=== PATIENT | male | born 1995 | race Caucasian/White ===

== ENCOUNTER 2020-06-17 03:45 | Emergency (ER) | payer OTHER ==
[~2020-06-17] VITALS: Ht 172.7 cm; Wt 88.9 kg
[2020-06-17] MEDS ORDERED: ORPH-16 PO (04:08)
--- NOTE | 2020-06-17 04:08 | PHYS DOC ---
Past History Past Medical History: Anxiety, Asthma, Depression Past Surgical History: No Surgical History Smoking: Non-smoker Alcohol Use: Occasionally Drug Use: None General Adult EDM: Chief Complaint: BACK PAIN - NO INJURY HPI: HPI: 24-year-old male with past medical history of asthma presents report of dis comfort between his shoulder blades that becomes worse with range of motion about his shoulder. Reports has been ongoing for the past week. Patient reports has been taking ibuprofen 600 mg daily without significant relief. Denies trauma. Denies fever or chills. Denies rash. Denies cough. Denies known exposure to COVID-19. Review of Systems: Review of Systems: Constitutional: Denies fever or chills Eyes: Denies redness or eye pain HENT: Denies nasal congestion or sore throat Respiratory: Denies cough or shortness of breath Cardiovascular: Denies chest pain or palpitations GI: Denies abdominal pain, nausea, or vomiting : Denies dysuria or hematuria Musculoskeletal: Reports thoracic back pain which is worse with range of motion about shoulders Integument: Denies rash or skin lesions Neurologic: Denies headache, focal weakness or sensory changes Complete systems were reviewed and found to be within normal limits, except as documented in this note. Allergies: Allergies: Allergies Coded Allergies Type Severity Reaction Last Updated Verified No Known Allergies Allergy Unknown 06/17/20 Yes Physical Exam: PE: Constitutional: Well developed, well nourished, no acute distress, non-toxic appearance HENT: Normocephalic, atraumatic Eyes: Conjunctiva normal, no discharge Neck: Normal range of motion, no midline tenderness, supple Lungs & Thorax: No respiratory distress, equal chest rise and fall Skin: Warm, dry, no erythema, no rash Back: No midline tenderness, no CVA tenderness, right paraspinal tenderness which is worse with ROM about shoulder Extremities: No tenderness, ROM intact, no edema, radial pulse +2, patient with very brightly colored red long artificial nails. Neurologic: Alert and oriented X 3, normal motor function, normal sensory function, no focal deficits noted Psychologic: Affect normal, judgment normal EKG: EKG: [] Radiology/Procedures: Radiology/Procedures: [] Course & Med Decision Making: Course & Med Decision Making Patient presents with HPI and physical exam consistent for thoracic back pain. Worse with range of motion about shoulder. Appears more musculoskeletal in nature. No midline tenderness noted. No history of known trauma. Symptomatic treatment provided with IM Norflex and ice pack. Patient stable for discharge with outpatient follow-up with PCP/pain management. Pain management referral provided. Discussed findings and plan with patient, who acknowledges understanding and agreement. Yvon Disclaimer: Yvon Disclaimer: This electronic medical record was generated, in whole or in part, using a voice recognition dictation system. Departure Departure: Impression: Primary Impression: Acute thoracic back pain Qualified Codes: M54.6 - Pain in thoracic spine Disposition: DC HOME SELF CARE/HOMELESS Condition: STABLE Referrals: PCP,UNKNOWN (PCP) Patient Instructions: Back Pain, Adult, [id number] Additional Instructions: ICE area of discomfort 20 min on then leave off next 20 min. Repeat several times daily as needed for pain. Use over the counter Tylenol and/or Ibuprofen for pain or discomfort. Follow up with pain management and/or PCP. Pain management referral: Dr. Jamir Cavanaugh Address: [address] [place] [address] Scripts Orphenadrine Citrate (ORPHENADRINE CITRATE) 100 Mg Tablet.er 1 TAB PO BID PRN for MUSCLE PAIN, #14 TAB 0 Refills Prov: ASHLY SANTOS DO 06/17/20 ASHLY SANTOS DO Jun 17, 2020 04:08
[2020-06-17] MEDS: ORPHENADRINE CITRATE 60 MG/2 ML VIAL. IM ONE (04:16)
[2020-06-17 04:30] VITALS: BP 138/94
== END 2020-06-17 04:30 | disposition home or self-care (01) ==
LOC: ER 03:45
DX: M54.6 Pain in thoracic spine (principal); J45.909 Unspecified asthma, uncomplicated
CPT/HCPCS: 96372; 99283; J2360

== ENCOUNTER 2020-09-26 01:15 | Emergency (ER) | payer OTHER ==
[~2020-09-26] VITALS: Ht 172.7 cm; Wt 88.9 kg
[~2020-09-26 01:15] MED LIST: ORPH-16 PO
--- NOTE | 2020-09-26 01:29 | PHYS DOC ---
Past History Past Medical History: Anxiety, Asthma, Depression Past Surgical History: No Surgical History Smoking: Non-smoker Alcohol Use: Occasionally Drug Use: None General Adult EDM: Chief Complaint: SORE THROAT HPI: HPI: ".. I ve had a sore throat the last couple days.. I have now been check for COVID fhree times.. and they have all be negative.. I got checked because I had a non-[productive cough..." Patient is a 25 year old male dependent who presents with above hx and complaints of sore throat. Patient states sore throat came up in the last 2 days. 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 Patient notes there daily for in person for school at grade classes. Patient denies any specific exposures to Covid. No recent travel outside the [place] a [employer] area. Patient denies any history of immunosuppression. No history of other members of his family being ill. His partner male partner has not had any recent overseas assignments. Pt. follows at [facility]. Review of Systems: Review of Systems: Constitutional: Denies fever or chills Eyes: Denies change in visual acuity HENT: Complains of sore throat Respiratory: History nonproductive cough. Cardiovascular: Denies chest pain or edema GI: Denies abdominal pain, nausea, vomiting, bloody stools or diarrhea : Denies dysuria Musculoskeletal: Denies back pain or joint pain Integument: Denies rash Neurologic: Denies headache, focal weakness or sensory changes Endocrine: Denies polyuria or polydipsia Lymphatic: Denies swollen glands Psychiatric: Denies depression or anxiety Family History: Family History: Noncontributory Current Medications: Current Meds: See nursing for home meds Allergies: Allergies: Allergies Coded Allergies Type Severity Reaction Last Updated Verified No Known Allergies Allergy Unknown 06/17/20 Yes Physical Exam: PE: Constitutional: Well developed, well nourished, no acute distress, non-toxic appearance. [] HENT: Normocephalic, atraumatic, bilateral external ears normal, oropharynx moist, no oral exudates, mild injection of posterior pharynx nose normal. Multiple ears studs bilaterally Eyes: PERRLA, EOMI, conjunctiva normal, no discharge. [] Neck: Normal range of motion, no tenderness, supple, no stridor. No adenopathy. Cardiovascular:Heart rate regular rhythm, no murmur [] Lungs & Thorax: Bilateral breath sounds equal apex with few scattered wheezes on auscultation [] Abdomen: Bowel sounds normal, soft, no tenderness, no masses, no pulsatile masses. [] Skin: Warm, dry, no erythema, no rash. [] Back: No tenderness, no CVA tenderness. [] Extremities: No tenderness, no cyanosis, no clubbing, ROM intact, no edema. [] Neurologic: Alert and oriented X 3, normal motor function, normal sensory function, no focal deficits noted. [] Psychologic: Affect anxious, judgement normal, mood normal. [] EKG: EKG: [] Radiology/Procedures: Radiology/Procedures: [] Heart Score: C/O Chest Pain: N/A Risk Factors: Risk Factors: DM, Current or recent (<one month) smoker, HTN, HLP, family his tory of CAD, obesity. Risk Scores: Score 0 - 3: 2.5% MACE over next 6 weeks - Discharge Home Score 4 - 6: 20.3% MACE over next 6 weeks - Admit for Clinical Observation Score 7 - 10: 72.7% MACE over next 6 weeks - Early Invasive Strategies Course & Med Decision Making: Course & Med Decision Making Pertinent Labs and Imaging studies reviewed. (See chart for details) Patient gargle with Listerine 4 times a day and as needed. Patient take Tylenol and ibuprofen [id number] for discomfort. Patient push fluids. Follow-up primary care. Follow-up is pending Covid test return if any concerns. Impression: 1. Viral syndrome [] Dragon Disclaimer: Dragon Disclaimer: This electronic medical record was generated, in whole or in part, using a voice recognition dictation system. Departure Departure: Referrals: JAZMÍN MIX (PCP) Yvon Disclaimer This chart was dictated in whole or in part using Voice Recognition software in a busy, high-work load, and often noisy Emergency Department environment. It may contain unintended and wholly unrecognized errors or omissions. OBDULIO ARRIAGA MD Sep 26, 2020 01:29
[2020-09-26] MEDS ORDERED: predniSONE 10 MG TABLET PO ONE (01:30)
== END 2020-09-26 02:00 | disposition home or self-care (01) ==
LOC: ER 01:15
DX: B34.9 Viral infection, unspecified (principal); F41.9 Anxiety disorder, unspecified; J45.909 Unspecified asthma, uncomplicated; F32.9 Major depressive disorder, single episode, unspecified
CPT/HCPCS: 87070; 87880; 99283; J7512

== ENCOUNTER 2021-04-23 23:16 | Emergency (ER) | payer OTHER ==
[~2021-04-23] VITALS: Ht 172.7 cm; Wt 88.9 kg
--- NOTE | 2021-04-24 00:23 | PHYS DOC ---
Past History Past Medical History: Anxiety, Asthma, Depression Past Surgical History: No Surgical History Smoking: Non-smoker Alcohol Use: Occasionally Drug Use: None General Adult HPI: HPI: ."... I feel like I got Strept. throat... It is really sore the last couple days... " Patient is a 25 year old male who presents with above hx and complaints of sore throat. Patient does have injected pharynx and adenopathy in anterior cervical chain. No history of immunosuppression. No history of travel. No history of civic ill contacts. Does have a past medical history of anxiety, asthma, depression, and pharyngitis. Patient is a non-smoker. Has had COVID vaccination x3. Review of Systems: Review of Systems: Constitutional: Denies fever or chills Eyes: Denies change in visual acuity HENT: History of sore throat Respiratory: Denies cough or shortness of breath Cardiovascular: Denies chest pain or edema GI: Denies abdominal pain, nausea, vomiting, bloody stools or diarrhea : Denies dysuria Musculoskeletal: Denies back pain or joint pain Integument: Denies rash Neurologic: Denies headache, focal weakness or sensory changes Endocrine: Denies polyuria or polydipsia Lymphatic: Denies swollen glands Psychiatric: Denies depression or anxiety Family History: Family History: See nursing for home meds Current Medications: Current Meds: See nursing for home meds Allergies: Allergies: Allergies Coded Allergies Type Severity Reaction Last Updated Verified No Known Allergies Allergy Unknown 06/17/20 Yes Physical Exam: PE: Constitutional: Well developed, well nourished, moderate acute distress, non- toxic appearance. [] HENT: Normocephalic, atraumatic, bilateral external ears normal, oropharynx moist, injected pharynx no oral exudates, nose normal. [] Eyes: PERRLA, EOMI, conjunctiva normal, no discharge. [] Neck: Normal range of motion, no tenderness, supple, no stridor. Cervical adenopathy Cardiovascular:Heart rate regular rhythm, no murmur [] Lungs & Thorax: Bilateral breath sounds equal at apex auscultation [] Abdomen: Bowel sounds normal, soft, no tenderness, no masses, no pulsatile masses. [] Skin: Warm, dry, no erythema, no rash. [] Back: No tenderness, no CVA tenderness. [] Extremities: No tenderness, no cyanosis, no clubbing, ROM intact, no edema. [] Neurologic: Alert and oriented X 3, normal motor function, normal sensory function, no focal deficits noted. [] Psychologic: Affect anxious, judgement normal, mood normal. [] EKG: EKG: [] Radiology/Procedures: Radiology/Procedures: [] Heart Score: C/O Chest Pain: N/A Risk Factors: Risk Factors: DM, Current or recent (<one month) smoker, HTN, HLP, family history of CAD, obesity. Risk Scores: Score 0 - 3: 2.5% MACE over next 6 weeks - Discharge Home Score 4 - 6: 20.3% MACE over next 6 weeks - Admit for Clinical Observation Score 7 - 10: 72.7% MACE over next 6 weeks - Early Invasive Strategies Course & Med Decision Making: Course & Med Decision Making Pertinent Labs and Imaging studies reviewed. (See chart for details) Patient will gargle with Listerine 4 times a day. Patient take Tylenol and ibuprofen for discomfort. Patient take Keflex 500 mg 3 times a day. Follow-up primary care. Return if any concerns. Impression: 1. Strep pharyngitis 2. Completed COVID vaccinations x3 [] Dragon Disclaimer: Dragon Disclaimer: This electronic medical record was generated, in whole or in part, using a voice recognition dictation system. Departure Departure: Referrals: PCP,UNKNOWN (PCP) Scripts Cephalexin (KEFLEX) 500 Mg Capsule 500 MG PO TID for strept throat for 7 Days, #21 CAP Prov: OBDULIO ARRIAGA MD 04/24/21 Yvon Disclaimer This chart was dictated in whole or in part using Voice Recognition software in a busy, high-work load, and often noisy Emergency Department environment. It may contain unintended and wholly unrecognized errors or omissions. Dragon Disclaimer This chart was dictated in whole or in part using Voice Recognition software in a busy, high-work load, and often noisy Emergency Department environment. It may contain unintended and wholly unrecognized errors or omissions. OBDULIO ARRIAGA MD Apr 24, 2021 00:22
[2021-04-24] MEDS ORDERED: predniSONE 10 MG TABLET. PO ONE (00:30)
[2021-04-24] MEDS ORDERED: HYDROcodon/IBUPROFEN 7.5/200MG 1 TAB TABLET PO ONE (00:30)
[2021-04-24 00:50] VITALS: BP 138/91
[2021-04-24] MEDS ORDERED: CEPHALEXIN 250 MG CAPSULE PO ONE (01:30)
[2021-04-24] MEDS ORDERED: CEPH500C PO (01:30)
[2021-04-24 01:53] LABS: INFLUENZA A PATIENT NEGATIVE (NEGATIVE); INFLUENZA B PATIENT NEGATIVE (NEGATIVE)
== END 2021-04-24 01:40 | disposition home or self-care (01) ==
LOC: ER 23:16
DX: J02.0 Streptococcal pharyngitis (principal); J45.909 Unspecified asthma, uncomplicated; Z23 Encounter for immunization
CPT/HCPCS: 87070; 87804; 87880; 99284; J7512

== ENCOUNTER 2021-09-26 08:06 | Emergency (ER) | payer OTHER ==
[~2021-09-26] VITALS: Ht 172.7 cm; Wt 88.9 kg
[2021-09-26 08:06] VITALS: BP 114/77
[~2021-09-26 08:06] MED LIST changes: +CEPH500C PO
[2021-09-26] MEDS ORDERED: DEXAMETHASONE 4 MG TABLET PO ONE (08:15)
[2021-09-26] MEDS ORDERED: ACETAMINOPHEN 500 MG TABLET PO ONE (08:30)
[2021-09-26 08:42] LABS: INFLUENZA A PATIENT NEGATIVE (NEGATIVE); INFLUENZA B PATIENT NEGATIVE (NEGATIVE)
--- NOTE | 2021-09-26 08:54 | PHYS DOC ---
Past History Past Medical History: Anxiety, Asthma, Depression Past Surgical History: Other Additional Past Surgical Histo: wisdom teeth Smoking: Non-smoker Alcohol Use: Occasionally Drug Use: None General Adult EDM: Chief Complaint: FEVER HPI: HPI: 26-year-old male presents with report of URI type symptoms upon waking this morning. Patient reports associated sore throat, nasal congestion, subjective fever, and headache. Patient reports he has received the Pfizer vaccination x3. Denies known sick contacts. 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 Denies trauma. Patient does report history of asthma. Review of Systems: Review of Systems: Constitutional: Reports subjective fever and chills Eyes: Denies redness or eye pain HENT: Reports nasal congestion and sore throat Respiratory: Reports cough; denies shortness of breath Cardiovascular: Denies chest pain or palpitations GI: Denies abdominal pain, nausea, or vomiting : Denies dysuria or hematuria Musculoskeletal: Denies back pain or joint pain Integument: Denies rash or skin lesions Neurologic: Reports headache; denies focal weakness or sensory changes Complete systems were reviewed and found to be within normal limits, except as documented in this note. Current Medications: Current Meds: Current Medications Medications (Trade) Dose Ordered Sig/Stephanie Start Time Stop Time Status Last Admin Dose Admin Acetaminophen (Tylenol) 1,000 mg 1X ONCE 09/26/21 08:30 09/26/21 08:31 DC 09/26/21 08:49 1,000 MG Dexamethasone (Decadron) 10 mg 1X ONCE 09/26/21 08:15 09/26/21 08:18 DC 09/26/21 08:49 10 MG Allergies: Allergies: Allergies Coded Allergies Type Severity Reaction Last Updated Verified No Known Allergies Allergy Unknown 06/17/20 Yes Physical Exam: PE: Constitutional: Well developed, well nourished, no acute distress, non-toxic appearance HENT: Normocephalic, atraumatic, TMs clear bilaterally, nares with enlarged turbinates bilaterally, pharynx without significant erythema or exudate Eyes: Conjunctiva normal, no discharge Neck: Normal range of motion, supple, no meningeal signs Lungs & Thorax: No respiratory distress, equal chest rise and fall Skin: Warm, dry, no erythema, no rash, bright yellow long artificial nails noted Extremities: No tenderness, ROM intact, no edema Neurologic: Alert and oriented X 3, no focal deficits noted Psychologic: Affect normal, judgment normal Current Patient Data: Labs: Laboratory Tests Test 09/26/21 08:13 Influenza Type A (Rapid) Negative (NEGATIVE) Influenza Type B (Rapid) Negative (NEGATIVE) SARS-CoV-2 Antigen (Rapid) Negative (NEGATIVE) Vital Signs: Vital Signs Date Time Temp Pulse Resp B/P (MAP) Pulse Ox O2 Delivery O2 Flow Rate FiO2 09/26/21 08:06 99.1 118 16 114/77 (89) 97 09/26/21 08:06 Room Air EKG: EKG: [] Radiology/Procedures: Radiology/Procedures: [] Heart Score: C/O Chest Pain: N/A Course & Med Decision Making: Course & Med Decision Making Pertinent Lab studies reviewed. (See chart for details) Patient presents with HPI and physical exam consistent for viral URI type symptoms. Patient is afebrile. Sats stable. Symptomatic treatment provided. Rapid COVID and influenza negative. Patient stable for discharge with outpatient follow-up with PCP. Discussed findings and plan with patient, who acknowledges understanding and agreement. Yvon Disclaimer: Yvon Disclaimer: This electronic medical record was generated, in whole or in part, using a voice recognition dictation system. Departure Departure: Impression: Primary Impression: Acute URI Disposition: HOME / SELF CARE / HOMELESS Condition: STABLE Referrals: PCP,UNKNOWN (PCP) Patient Instructions: Upper Respiratory Infection, Adult, [id number] Additional Instructions: Your rapid COVID and Influenza testing is negative. There is still a chance your might have COVID. If your symptoms continue or for worsening you can discuss retesting with your doctor. You have been tested for or diagnosed with COVID-19. It is an infection caused by a new type of coronavirus. COVID-19 will cause cold-like or mild flu symptoms in most. It can cause more severe symptoms like problems breathing in some. There is no treatment for COVID-19. The body will clear the infection over time. Self-care will help to ease discomfort. Steps to Take: Self-Care Rest as needed. Healthy habits may help you feel better. Steps include: Choose healthy foods including fruits and vegetables. Drink water throughout the day. Get plenty of sleep each night. If you smoke, try to quit. It may ease breathing. Avoid alcohol. Keep Others Healthy The virus can spread to others. Droplets are released every time you sneeze or cough. The droplets can get into the mouth, nose, or eyes of people near you and lead to infection. To lower the chances of spreading COVID-19 to others: Stay at home until your doctor has said it is safe to leave. If you tested positive this will mean staying isolated until both of the following are true: At least 7 days have passed since the start of illness. You are free of fever for at least 72 hours without the use of medicine. During this time: - Avoid public areas, events, or transportation. Do not return to work or school until your doctor has said it is safe to do so. - Call ahead if you need to go to a medical center. Let them know you may have COVID-19. It will help them guide you where to go. They may also ask you to wear a facemask when you come to the office. - If you call for emergency medical services, let them know you may have COVID- 19. While at home: - Try to avoid close contact with others. Stay about 6 feet away. - If possible, spend most of your time in a separate room from others. - Use a face mask if you will be in close contact with others such as sharing a room or vehicle. - Have someone wipe down common surfaces in the home. Use household healthcare risk control consultant every day on areas like doorknobs, counters, or sinks. - Cough or sneeze into a tissue. Throw the tissue away right after use. If a tissue is not available, cough or sneeze into your elbow. - Wash your hands often. Wash them after sneezing or coughing. Use soap and water and wash for at least 20 seconds. Alcohol based hand dry cleaner apprentice can be used if soap and water is not available. - Do not prepare food for others. Avoid sharing personal items like forks, spoons, or toothbrushes. - Avoid close contact with pets while you are sick. There is no evidence of the virus passing to pets. This is a safety step until more is known about this virus. Isolation can be frustrating. Social interaction can help. Keep in touch with friends and family through phone and tech options. You can still interact with others in your home, just keep a safe distance of about 6 feet. Follow-up: Your doctors office will check in with you to see if there are any changes in your health. You may be asked to keep track of symptoms to share with them. They will also let you know when you are clear to be in public again. Problems to Look Out For: Contact your doctor if your recovery is not going as you expect. Get emergency care if you have problems such as: - Trouble breathing - Nonstop chest pain or pressure - Changes in awareness, confusion, or problems waking - Lips or face have bluish color - Worsening of symptoms If you think you have an emergency, call for emergency medical services right away. As taken from [facility] ASHLY SANTOS DO Sep 26, 2021 08:54
== END 2021-09-26 09:00 | disposition home or self-care (01) ==
LOC: ER 08:06
DX: J06.9 Acute upper respiratory infection, unspecified (principal); J45.909 Unspecified asthma, uncomplicated; Z20.822 Contact with and (suspected) exposure to COVID-19
CPT/HCPCS: 87428; 99283; J8540

== ENCOUNTER 2021-10-23 17:54 | Emergency (ER) | payer OTHER ==
[~2021-10-23] VITALS: Ht 172.7 cm; Wt 92.5 kg
[2021-10-23] MEDS ORDERED: guaiFENesin/CODEINE 100mg/10mg 5 ML LIQUID PO PRN (18:15)
--- NOTE | 2021-10-23 18:19 | PHYS DOC ---
Past History Past Medical History: Anxiety, Asthma, Depression Past Surgical History: Other Additional Past Surgical Histo: wisdom teeth Smoking: Non-smoker Alcohol Use: Occasionally Drug Use: None Adult General Chief Complaint Chief Complaint: CHEST PAIN HPI HPI Patient is 26-year-old male with a past medical history of asthma who presents with 2 days of productive cough, and body aches. Denies any recent travels, traumas, fevers, rash, shortness of breath, wheeze, abdominal pain, nausea, vomiting, diarrhea. States he is eating and drinking normally for him. States he is making urine and stool normally for him. Did not take any medications. Review of Systems Review of Systems Review of systems otherwise unremarkable except noted in HPI Allergies Allergies Allergies Coded Allergies Type Severity Reaction Last Updated Verified No Known Allergies Allergy Unknown 06/17/20 Yes Physical Exam Physical Exam Constitutional: Well developed, well nourished, no acute distress, non-toxic appearance. [] HENT: Normocephalic, atraumatic, bilateral external ears normal, oropharynx moist, no oral exudates, nose normal. [] Eyes: PERRLA, EOMI, conjunctiva normal, no discharge. [] Neck: Normal range of motion, no tenderness, supple, no stridor. [] Cardiovascular: Sinus tachycardia Lungs & Thorax: Mild bilateral upper respiratory congestion, no wheeze, no respiratory distress Abdomen: soft, no tenderness, no masses, no pulsatile masses. [] Skin: Warm, dry, no erythema, no rash. [] Extremities: No tenderness, no edema. [] Neurologic: Alert and oriented X 3, normal motor function, normal sensory function, able to sit, stand and walk without issue, no focal deficits noted. [] Psychologic: Affect normal, judgement normal, mood normal. [] EKG EKG [] Radiology/Procedures Radiology/Procedures [] Heart Score C/O Chest Pain: Yes HEART Score for Chest Pain: HEART Score for Chest Pain Response (Comments) Value History Slighlty/Non-Suspicious 0 ECG Normal 0 Age < 45 0 Risk Factors No Risk Factors 0 Troponin < Normal Limit 0 Total 0 Risk Factors: Risk Factors: DM, Current or recent (<one month) smoker, HTN, HLP, family history of CAD, obesity. Risk Scores: Risk Factors: DM, Current or recent (<one month) smoker, HTN, HLP, family history of CAD, obesity. Course & Med Decision Making Course & Med Decision Making Patient is a 26-year-old male who presents with productive cough, pleuritic chest pain, and some body aches Vital signs nonconcerning. Physical exam noted above. EKG with a rate of 112, QRS of 86, QTc of 471, no STEMI. Troponin normal [] Dragon Disclaimer Dragon Disclaimer This electronic medical record was generated, in whole or in part, using a voice recognition dictation system. Departure Departure: Impression: Primary Impression: Pneumonia Disposition: HOME / SELF CARE / HOMELESS Condition: STABLE Referrals: PCP,UNKNOWN (PCP) ROBIN ROBERTS MD Patient Instructions: Pneumomediastinum Additional Instructions: Thank you for coming into the emergency department tonight and allowing us to take care of you. Please read the attached information carefully to go over things we discussed. Please begin a Tylenol, ibuprofen and Benadryl regimen for your symptoms at home. Please take antibiotics as prescribed until gone. Please follow-up with your primary care physician as soon as you can to update on your ED visit and set up follow-up. Please come back with new or concerning symptoms as discussed. Scripts Azithromycin (AZITHROMYCIN TABLET) 250 Mg Tablet 250 MG PO DAILY for N/V for 4 Days, #4 TAB 0 Refills Prov: SUSHILA RANKIN MD 10/23/21 SUSHILA RANKIN MD Oct 23, 2021 18:18
[2021-10-23] MEDS ORDERED: ACETAMINOPHEN 500 MG TABLET PO ONE (18:30)
[2021-10-23] MEDS ORDERED: IBUPROFEN 600 MG TABLET. PO ONE (18:30)
[2021-10-23 19:05] VITALS: BP 152/85
--- NOTE | 2021-10-23 19:38 | RAD ---
INDICATION: Reason: CP / Spl. Instructions: / History: COMPARISON: None. FINDINGS: Single view of chest obtained. Mild haziness at lung bases with relative lucency of the lung apices. Regions of nodularity could be calcified granulomas or vessels seen on end. Cardiac silhouette is unremarkable. IMPRESSION: * Mild haziness at lung bases could be from atelectasis or mild infiltrate. Electronically signed by: Charly Tiwari MD (10/23/2021 7:36 PM) [id number]
[2021-10-23] MEDS ORDERED: AZIT250T6 PO (19:42)
[2021-10-23] MEDS ORDERED: ALBUTEROL SULFATE 8GM INHALER. INH ONE (20:00)
[2021-10-23] MEDS ORDERED: AZITHROMYCIN 250 MG TABLET. PO ONE (20:00)
--- NOTE | 2021-10-24 21:51 | EKG ---
[address] [address] Test Date: 2021-10-23 Test Time: 18:07:28 Pat Name: DAMASO CORONA Department: Room: Gender: M Associate [employer]: : 1995 Requested By: SUSHILA RANKIN Order Number: [id number] Reading MD: Roverto Watkins Measurements Intervals Nelson Rate: 112 P: 140 WA: 112 QRS: 36 QRSD: 86 T: 16 QT: 344 QTc: 471 Interpretive Statements SINUS TACHYCARDIA INCOMPLETE RIGHT BUNDLE BRANCH BLOCK Electronically Signed On 10-27-2021 18:37:31 CDT by Roverto Watkins
== END 2021-10-23 19:50 | disposition home or self-care (01) ==
LOC: ER 17:54
DX: J18.9 Pneumonia, unspecified organism (principal); J45.909 Unspecified asthma, uncomplicated
CPT/HCPCS: 36415; 71045; 84484; 93005; 94640; 99285